=== PATIENT | male | born 1985 | race Caucasian/White ===

== ENCOUNTER 2023-01-10 15:44 | Emergency (ER) | payer SELFPAY ==
[~2023-01-10] VITALS: Ht 175.3 cm; Wt 87.4 kg
[2023-01-10 18:03] VITALS: BP 151/80
[2023-01-10] MEDS ORDERED: METH-1182 PO (18:25)
[2023-01-10] MEDS ORDERED: IBUP-1456 PO (18:25)
[2023-01-10] MEDS ORDERED: KETOROLAC TROMETH 60MG/2ML VIAL IM ONE (18:45)
== END 2023-01-10 19:01 | disposition home or self-care (01) ==
LOC: ER 15:44
DX: S29.011A Strain of muscle and tendon of front wall of thorax, initial encounter (principal); S39.011A Strain of muscle, fascia and tendon of abdomen, initial encounter; S30.1XXA Contusion of abdominal wall, initial encounter; W18.09XA Striking against other object with subsequent fall, initial encounter; Y93.89 Activity, other specified; Y92.89 Other specified places as the place of occurrence of the external cause; Y99.8 Other external cause status
CPT/HCPCS: 71250; 74176; 99284; J1885

== ENCOUNTER → 2024-10-13 | Outpatient (CLI) | payer BC ==
[~2024-10-13] MED LIST: IBUP-1456 PO; METH-1182 PO
[2024-10-13 07:05] LABS: Urine Bacteria None Seen /hpf (None Seen)
[2024-10-13 07:31] LABS: Urine Blood TRACE /uL (Negative); Urine Clarity Clear (Clear); Urine Color Yellow (Yellow); Urine Mucus FEW (None Seen); Urine Protein, UAD Negative (Negative); Urine Specific Gravity 1.026 (1.001-1.035); Urine Squamous Epithelial Cell FEW /hpf (<5); Urine Urobilinogen Normal (Negative); Urine WBC 1 /HPF (0-3); Urine pH 5.5 (5.0-9.0)
[2024-10-13 07:33] LABS: Basophils # (auto) 0 10 ^3/uL (0-0.2); Basophils % (auto) 0.7 % (0.0-2.0); Eosinophils # (auto) 0.2 10 ^3/uL (0-0.8); Eosinophils % (auto) 3.2 % (0.0-7.0); Hematocrit 47.6 % (41.0-53.0); Hemoglobin 16.8 g/dL (13.5-17.5); Lymphocytes # (auto) 2.9 10 ^3/uL (0.4-5.4); Mean Corpuscular Hemoglobin 30.4 pg (28.0-32.0); Mean Corpuscular Hgb Conc. 35.2 g/dL (32.0-36.0); Mean Corpuscular Volume 86.3 fL (80.0-100.0); Monocytes # (auto) 0.5 10 ^3/uL (0-1.3); Monocytes % (auto) 7.5 % (0.0-12.0); Neutrophils # (auto) 3.3 10 ^3/uL (1.6-8.6); Neutrophils % (auto) 47.6 % (37.0-80.0); Nucleated Red Blood Cells % 0.2 %; Platelet Count (auto) 222 10^3/uL (140-450); Red Blood Cells 5.52 10^6/uL (4.5-5.90); Red Cell Distribution Width 13.4 % (11.8-14.3)
[2024-10-13 08:14] LABS: Alkaline Phosphatase 58 U/L (46-116); Anion Gap 9 (5-15); BUN/Creatinine Ratio 12.8 (10.0-20.0); Blood Urea Nitrogen 12 mg/dL (9-23); Calcium 9.8 mg/dL (8.7-10.4); Carbon Dioxide 24 mmol/L (20-31); Chloride 107 mmol/L (98-107); Glucose 99 mg/dL (74-106); Sodium 140 mmol/L (136-145); Total Protein 7.2 g/dL (5.7-8.2); Triglycerides 118 mg/dL (< 150)
[2024-10-13 08:15] LABS: Aspartate Aminotransferase 22 U/L (13-40); Bilirubin, Total 0.8 mg/dL (0.2-1.0); HDL Cholesterol 47 mg/dL (40-59)
[2024-10-13 08:20] LABS: Alanine Aminotransferase 65 U/L (7-40); Albumin 4.9 g/dL (3.2-4.8); Cholesterol 210 mg/dL (< 200); LDL Cholesterol 147 mg/dL (< 100)
== END | disposition home or self-care (01) ==
LOC: LAB 06:38
PROVIDERS: ATTEND Internal Medicine
DX: Z00.00 Encounter for general adult medical examination without abnormal findings (principal)
CPT/HCPCS: 36415; 80053; 80061; 81001; 82043; 83036; 84443; 85025

== ENCOUNTER → 2025-02-04 | Day surgery (SDC) | payer BC ==
[2025-02-02 15:08] LABS: Hematocrit 47.7 % (41.0-53.0); Hemoglobin 16.5 g/dL (13.5-17.5); Mean Corpuscular Hemoglobin 30.1 pg (28.0-32.0); Mean Corpuscular Volume 87.4 fL (80.0-100.0); Nucleated Red Blood Cells % 0.2 %
[2025-02-02 15:12] LABS: Urine Protein, UAD Negative (Negative)
[2025-02-02 15:28] LABS: Alkaline Phosphatase 79 U/L (46-116); Anion Gap 9 (5-15); BUN/Creatinine Ratio 14.1 (10.0-20.0); Blood Urea Nitrogen 14 mg/dL (9-23); Calcium 9.7 mg/dL (8.7-10.4); Carbon Dioxide 28 mmol/L (20-31); Chloride 104 mmol/L (98-107); Glucose 84 mg/dL (74-106); Potassium 4.1 mmol/L (3.5-5.1); Sodium 141 mmol/L (136-145); Total Protein 7.1 g/dL (5.7-8.2)
[2025-02-02 15:29] LABS: Bilirubin, Total 0.4 mg/dL (0.2-1.0)
[2025-02-02 15:33] LABS: Alanine Aminotransferase 95 U/L (7-40); Albumin 4.9 g/dL (3.2-4.8); INR 1.01 (0.9-1.15); Partial Thromboplastin Time 26.8 SEC (24.5-34.5); Prothrombin Time 10.7 sec (9.3-11.8)
[~2025-02-04] VITALS: Ht 175.3 cm; Wt 93.0 kg
[~2025-02-04] MED LIST changes: -IBUP-1456 PO; +KETAMINE 50mg/ML 1ml syringe ONE; +LEVO500T91 PO; +LIDOCAINE 1% INJ PF 5ML AMP ONE; -METH-1182 PO; +MIDAZOLAM HCL 2MG/2ML 2ml VIAL (1mg/ml) ONE; +ONDANSETRON HCL 4 MG/2 ML VIAL ONE; +PROPOFOL 10 MG/ML 20 ML IV ONE; +SODIUM CHLORIDE LOCK 10 ML ONE; +fentaNYL CITRATE 100 MCG/2 ML VL ONE
--- NOTE | 2025-02-04 11:49 | DVHOP2 ---
Operative Report DATE OF OPERATION: 02/04/25 PROCEDURE: Colonoscopy with cold biopsy. PREOPERATIVE INDICATION: The patient is a 39 -year-old male undergoing colonoscopy for colon cancer screening with her family history of colon cancer POSTOPERATIVE DIAGNOSES: 1. There were 2-3 diminutive benign-appearing rectal excrescences that were seen and removed by cold biopsy forceps 2. Trace internal hemorrhoids otherwise completely normal colonoscopy examination up to the cecum and terminal ileum PROCEDURE PERFORMED BY: Corby Ken M.D. SCOPE: Olympus videocolonoscope. ASA CLASS: 2 PREOPERATIVE MEDICATIONS: Dr. Analy Hernandez PROCEDURE IN DETAIL: After obtaining an informed consent, the patient was placed on left lateral decubitus position. He was then sedated with the above medications. A rectal examination was performed that was normal. The colonoscope was then passed through the anus into the rectosigmoid and through the descending, transverse, and ascending colon up to the cecum with visualization of the appendiceal orifice, base of the cecum and the ileocecal valve. The colonoscope was then withdrawn. The distal 5 cm of the terminal ileum were normal No polyps or masses were seen. There was no colitis or clear-cut diverticular disease In the rectum there were two three diminutive benign-appearing hyperplastic excrescences that were removed by cold biopsy forceps On retroflexion and straight on view the patient had trace to 1+ internal hemorrhoids. The patient tolerated the procedure well without difficulty. WITHDRAWAL TIME: 9 minute QUALITY OF THE PREP: [place] Bowel Prep score: 9. COMPLICATIONS : None SPECIMENS: Rectal excrescence DISPOSITION: Stable D/C to home PLAN: 1. Repeat colonoscopy base on biopsy result likely in 5-7 years 2. Resume GI soft diet advance as tolerated 3. Outpatient follow up with me in 2-4 weeks to review results and discuss further management CORBY KEN MD Feb 04, 2025 11:49
[2025-02-04 12:26] VITALS: BP 130/90; PULSE 93; RESP 11; O2SAT 97
== END | disposition home or self-care (01) ==
LOC: GI 10:30
PROVIDERS: ATTEND Internal Medicine Gastroenterology
DX: Z12.11 Encounter for screening for malignant neoplasm of colon (principal); K62.1 Rectal polyp; Z80.0 Family history of malignant neoplasm of digestive organs; K64.0 First degree hemorrhoids
CPT/HCPCS: 36415; 45380; 80053; 81001; 85025; 85610; 85730; 88305; J2250; J2405; J2704; J3010; J7030

== ENCOUNTER 2025-02-12 09:39 | Emergency (ER) | payer BC ==
[~2025-02-12] VITALS: Ht 177.8 cm; Wt 94.3 kg
[2025-02-12] MEDS: PANTOPRAZOLE 40 MG/10 ML VIAL INJ IV ONE (10:18)
[2025-02-12] MEDS: ONDANSETRON HCL 4 MG/2 ML VIAL IV ONE (10:18)
[2025-02-12] MEDS: SODIUM CHLORIDE 0.9% 1,000 ML IV ONE (10:20)
[2025-02-12] MEDS: MORPHINE SULFATE 4 MG/ML SYR/VIAL IV ONE (10:20)
--- NOTE | 2025-02-12 10:26 | ED.PDOC ---
GI ASSESSMENT HPI Comments This is a 39 year-old male who presents to the ED with a chief complaint of abdominal pain with associated N/V and chills as of this morning. Patient states having a colonoscopy X1 week ago. Patient has no further complaints at this time and otherwise denies further associated symptoms of diarrhea, dysuria, hematuria, chest pain, or back pain. Chief Complaint: Nausea/Vomiting Time Seen by MD: 10:19 Primary Care Provider: "I DON'T KNOW THIER NAME" Allergies: Coded Allergies: NO KNOWN ALLERGIES (Unverified , 08/05/12) Home Meds Active Scripts Levofloxacin Hemihydrate (LEVOFLOXACIN) 500 Mg Tab, 1 TAB PO DAILY for 10 Days, #10 TAB Prov:RICK GODDARD MD 02/12/25 Information Source: Patient Mode of Arrival: Ambulatory Timing: Hours Duration: Since onset Prehospital treatment: None Quality: None Vomitus: None Severity: Moderate Recent: Other (recent colonoscopy ) Pain Location: Diffuse Associated sign and symptoms: Nausea, Vomiting, Abdominal Pain, Other (chills ) Past Medical History PAST MEDICAL HISTORY: Denies Surgical History: Denies all surgeries Family History Family History: Reviewed,noncontributory to illness Social History Smoker: Non-Smoker Alcohol: Denies ETOH Use Drugs: Denies Drug Use Lives In: Home Constitutional: reports: chills; denies: diaphoresis, fatigue, fever, malaise, sweats, weakness, others EENTM: denies: blurred vision, double vision, ear bleeding, ear discharge, ear drainage, ear pain, ear ringing, eye pain, eye redness, hearing loss, mouth pain, mouth swelling, nasal discharge, nose bleeding, nose congestion, nose pain, photophobia, tearing, throat pain, throat swelling, voice changes, others Respiratory: denies: cough, hemoptysis, orthopnea, SOB at rest, shortness of breath, SOB with excertion, stridor, wheezing, others Cardiovascular: denies: chest pain, dizzy spells, diaphoresis, Dyspnea on exertion, edema, irregular heart beat, left arm pain, lightheadedness, palpitations, PND, syncope, others Gastrointestinal: reports: abdominal pain, nausea, vomiting; denies: abdomen distended, blood streaked bowels, constipated, diarrhea, dysphagia, difficulty swallowing, hematemesis, melena, poor appetite, poor fluid intake, rectal bleeding, rectal pain, others Genitourinary: denies: burning, dysuria, flank pain, frequency, hematuria, incontinence, penile discharge, penile sore, pain, testicle pain, testicle swelling, urgency, others Neurological: denies: dizziness, fainting, headache, left sided numbness, left sided weakness, numbness, paresthesia, pre-existing deficit, right sided numbness, right sided weakness, seizure, speech problems, tingling, tremors, weakness, others Musculoskeletal: denies: back pain, gout, joint pain, joint swelling, muscle pain, muscle stiffness, neck pain, others Integumetry: denies: bruises, change in color, change in hair/nails, dryness, laceration, lesions, lumps, rash, wounds, others Allergic/Immunocompromised: denies: Difficulty Healing, Frequent Infections, Hives, Itching, others Hematologic/Lymphatic: denies: anemia, blood clots, easy bleeding, easy bruising, swollen glands, others Endocrine: denies: excessive hunger, excessive sweating, excessive thirst, excessive urination, flushing, intolerance to cold, intolerance to heat, unexplained weight gain, unexplained weight loss, others Psychiatric: denies: anxiety, bipolar disorder, depression, hopeless, panic d isorder, schizophrenia, sleepless, suicidal, others All Other Systems: Reviewed and Negative Physical Exam General Appearance: Moderate Distress HEENT: Normal ENT Inspection, Pharynx Normal, TMs Normal Neck: Full Range of Motion, Non-Tender, Normal, Normal Inspection Respiratory: Chest Non-Tender, Lungs Clear, No Accessory Muscle Use, No Respiratory Distress, Normal Breath Sounds Cardiovascular: No Edema, No JVD, No Murmur, No Gallop, Normal Peripheral Pulses, Regular Rate/Rhythm Breast Exam: Deferred Gastrointestinal: No Organomegaly, Non Tender, No Pulsatile Mass, Normal Bowel Sounds, Soft Genitalia: Deferred Pelvic: Deferred Rectal: Deferred Extremities: No calf tenderness, Normal capillary refill, Normal inspection, Normal range of motion, Non-tender, No pedal edema Musculoskeletal : Apperance: Normal Neurologic: Alert, 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 Was a procedure done?: No GI differential Dx Differential Diagnosis: Constipation, Diverticular disease, Esophagitis, Gastritis/PUD, Gastroenteritis, Inflammatory BD, Dehydration, Bacterial, Parasitic, Viral X-Ray, Labs, Meds, VS Vital Signs Date Time Temp Pulse Resp B/P (MAP) Pulse Ox O2 Delivery O2 Flow Rate FiO2 02/12/25 12:45 97.9 76 16 118/67 (84) 96 97.9 02/12/25 10:45 75 18 111/70 02/12/25 10:43 97.6 75 18 111/70 (84) 96 97.6 02/12/25 10:33 84 19 95 Room Air* 0 21 02/12/25 10:20 84 18 119/69 02/12/25 09:42 98.4 84 18 119/69 99 98.4 Lab Test 02/12/25 10:13 02/12/25 10:10 02/12/25 09:46 Range/Units Urine Color Yellow Yellow Urine Clarity Clear Clear Urine pH 7.0 5.0-9.0 Urine Specific [place] 1.028 1.001-1.035 Urine Protein Negative Negative Urine Ketones Negative Negative Urine Blood Negative Negative /uL Urine Nitrite Negative Negative Urine Bilirubin Negative Negative Urine Urobilinogen Normal Negative mg/dL Urine Leukocyte Esterase Negative Negative /uL Urine RBC 3 0 - 3 /hpf Urine Microscopic WBC 1 0-3 /HPF Urine Squamous Epithelial Cells None seen <5 /hpf Urine Bacteria None seen None Seen /hpf Urine Mucus Few None Seen Urine Glucose Normal Normal mg/dL White Blood Count 11.7 H 4.4-10.8 10^3/uL Red Blood Count 5.56 4.5-5.90 10^6/uL Hemoglobin 16.7 13.5-17.5 g/dL Hematocrit 48.2 41.0-53.0 % Mean Corpuscular Volume 86.7 80.0-100.0 fL Mean Corpuscular Hemoglobin 30.0 28.0-32.0 pg Mean Corpuscular Hemoglobin Concent 34.7 32.0-36.0 g/dL Red Cell Distribution Width 13.8 11.8-14.3 % Platelet Count 230 140-450 10^3/uL Mean Platelet Volume 8.7 6.9-10.8 fL Neutrophils (%) (Auto) 82.9 H 37.0-80.0 % Lymphocytes (%) (Auto) 12.4 10.0-50.0 % Monocytes (%) (Auto) 4.3 0.0-12.0 % Eosinophils (%) (Auto) 0.2 0.0-7.0 % Basophils (%) (Auto) 0.2 0.0-2.0 % Neutrophils # (Auto) 9.7 H 1.6-8.6 10 ^3/uL Lymphocytes # (Auto) 1.5 0.4-5.4 10 ^3/uL Monocytes # (Auto) 0.5 0-1.3 10 ^3/uL Eosinophils # (Auto) 0 0-0.8 10 ^3/uL Basophils # (Auto) 0 0-0.2 10 ^3/uL Nucleated Red Blood Cells 0.2 % Sodium Level 140 136-145 mmol/L Potassium Level 4.3 3.5-5.1 mmol/L Chloride Level 105 98-107 mmol/L Carbon Dioxide Level 26 20-31 mmol/L Anion Gap 9 5-15 Blood Urea Nitrogen 16 9-23 mg/dL Creatinine 1.00 0.700-1.30 mg/dL Glomerular Filtration Rate Calc 98 >90 mL/min BUN/Creatinine Ratio 16.0 10.0-20.0 Serum Glucose 130 H 74-106 mg/dL Calcium Level 9.9 8.7-10.4 mg/dL Total Bilirubin 0.7 0.2-1.0 mg/dL Aspartate Amino Transferase (AST) 49 H 13-40 U/L Alanine Aminotransferase (ALT) 126 H 7-40 U/L Alkaline Phosphatase 74 46-116 U/L Total Protein 7.5 5.7-8.2 g/dL Albumin 5.2 H 3.2-4.8 g/dL POC Glucose 135 H 70-106 mg/dl Current Medications Medications (Trade) Dose Ordered Sig/Marito Route Start Time Stop Time Status Last Admin Sodium Chloride 1,000 ml @ 1,000 mls/hr Q1H ONCE IV 02/12/25 10:15 02/12/25 11:14 DC 02/12/25 10:20 Morphine Sulfate 4 mg ONCE ONCE IV 02/12/25 10:15 02/12/25 10:16 DC 02/12/25 10:20 Ondansetron HCl (Zofran) 4 mg ONCE ONCE IV 02/12/25 10:15 02/12/25 10:16 DC 02/12/25 10:18 Pantoprazole Sodium (Protonix) 40 mg ONCE ONCE IV 02/12/25 10:15 02/12/25 10:16 DC 02/12/25 10:18 [place] [id number] Ph: [phone] DIAGNOSTIC IMAGING Diagnostic Imaging Report : [id number] Signed PATIENT: BRANDON MCKEON ACCT: [id number] UNIT: [id number] : 1985 LOC: ER ROOM / BED: / AGE / SEX: 39 / M ADM STATUS: REG ER SERVICE 1155 ORDERING PHYSICIAN: RICK GODDARD MD PROCEDURE(s): ABPL - CT AB PEL WO CON-NO ORAL OR IV REASON: r/o gallstones ORDER NUMBER(s): [id number], ACCESSION NUMBER(s): [id number] Exam: CT CT AB PEL WO CON-NO ORAL OR IV History: r/o gallstones Comparison Study: CT CHST AB PEL WO CON-NO IV/ORAL on DOS: 01/10/23 Technique: Multidetector spiral CT of the abdomen and pelvis was performed from lung bases to pubic symphysis. Imaging was performed without IV contrast. Axial, coronal and sagittal multiplanar reformats were obtained from the axial data set by the technologist. Radiation dose : Abdomen/Pelvis: CTDIvol 13.69 mGy, DLP 750.03 mGy*cm. Findings: Evaluation of solid organs is limited due to lack of intravenous contrast use. Lung Bases: Patchy ground-glass opacities in the lung bases. Liver: The liver is normal in size. No focal lesions. Gallbladder and biliary Tree: Unremarkable Spleen: Unremarkable Pancreas: The pancreas is grossly normal in appearance. Adrenal Glands: Unremarkable Kidneys: Subcentimeter high density left renal cysts. No hydronephrosis or nephrolithiasis. Bladder: Grossly unremarkable for degree of distention. Bowel: The stomach is grossly normal in appearance. Small bowel and colon are normal in caliber and distribution. Normal appendix is visualized in the right lower quadrant without findings of appendicitis. Ascites: Absent Lymphadenopathy: No mesenteric, retroperitoneal or periportal lymphadenopathy. Abdominal wall and Mesentery: Small fat containing umbilical hernia. Vasculature: The visualized abdominal aorta is normal in size and caliber. Evaluation of abdominal and pelvic vessels is limited due to lack of intravenous contrast. Pelvic Organs: Unremarkable Musculoskeletal: No aggressive focal bony lesions, acute fractures or dislocation. IMPRESSION: 1. No acute abdominal or pelvic findings. No radiopaque gallstones. Consider further evaluation with right upper quadrant ultrasound. Subcentimeter high density left renal cyst. Small fat containing umbilical hernia. Mild patchy ground-glass opacities in the lung bases. Clinical correlation and continued follow-up is recommended. Radiation optimization: All CT scans at this facility use at least one of these dose optimization techniques: Automated exposure control mA and/or kV adjustment per patient size (includes targeted exams where dose is matched to clinical indication) or iterative reconstruction. HS:Y Patient alert. Complaining of abdominal pain. Vitals stable. Answering questions. Liver enzymes slightly elevated. Blood sugar slightly elevated. Establish intravenous access. Was given fluids pain Was given pain medication. Was given Zofran. Was given Protonix. WBC elevated. Possible dehydration. CT scan of the abdomen reviewed does show pneumonia. No abdominal pathology. Was given prescription of Levaquin antibiotic. Patient states that he is feeling much better. Explained to the patient. Was told to follow up with his primary care physician. Was told to come back if there is any problem. Time of 1ST Reevaluation: 11:00 Reevaluation 1ST: Unchanged Time of 2ND Reevaluation: 12:51 Reevaluation 2ND: Improved Patient Education/Counseling: Diagnosis, Treatment Family Education/Counseling: No Family Present SEPSIS Sepsis Screen Date sepsis recognized/suspect: Feb 12, 2025 Time Sepsis recognized/suspect: 943 Recent Procedure: Yes (COLONOSCOPY FRIDAY) On Antibiotic Therapy: No Respiratory Rate >20: No Heart Rate >90: No Temp<36 C (96.8 F) or >38.3 C: No SBP <90 or MAP <65 mmHG: No New Acute Mental Status Change: No Is the patient on CPAP, BIPAP,: No Physician Orders Ct Ab Pel Wo Con-No Oral Or Iv (02/12/25 11:55) Vital Signs Date Time Temp Pulse Resp B/P (MAP) Pulse Ox O2 Delivery O2 Flow Rate FiO2 02/12/25 12:45 97.9 76 16 118/67 (84) 96 97.9 02/12/25 10:45 75 18 111/70 02/12/25 10:43 97.6 75 18 111/70 (84) 96 97.6 02/12/25 10:33 84 19 95 Room Air* 0 21 02/12/25 10:20 84 18 119/69 02/12/25 09:42 98.4 84 18 119/69 99 98.4 Laboratory Tests Test 02/12/25 10:10 White Blood Count 11.7 10^3/uL (4.4-10.8) H Medications Medications Dose Ordered Sig/Marito Route Start Time Stop Time Status Last Admin Dose Admin Morphine Sulfate 4 mg ONCE ONCE IV 02/12/25 10:15 02/12/25 10:16 DC 02/12/25 10:20 Ondansetron HCl 4 mg ONCE ONCE IV 02/12/25 10:15 02/12/25 10:16 DC 02/12/25 10:18 Pantoprazole Sodium 40 mg ONCE ONCE IV 02/12/25 10:15 02/12/25 10:16 DC 02/12/25 10:18 Sodium Chloride 1,000 ml @ 1,000 mls/hr Q1H ONCE IV 02/12/25 10:15 02/12/25 11:14 DC 02/12/25 10:20 Departure 1 Departure Time of Disposition: 12:04 Impression: Primary Impression: Acute abdominal pain Additional Impressions: Elevated liver enzymes Pneumonia Qualified Codes: J18.9 - Pneumonia, unspecified organism Disposition: 01 HOME / SELF CARE / HOMELESS Condition: Good e-Prescriptions Levofloxacin Hemihydrate (LEVOFLOXACIN) 500 Mg Tab 1 TAB PO DAILY for 10 Days, #10 TAB Prov: RICK GODDARD MD 02/12/25 Discharged With: Self Critical Care Note Critical Care Time?: No Stability Stability form required: No Heart Score Heart Score: Heart Score Response (Comments) Value History N/A 0 EKG N/A 0 Age N/A 0 Risk Factors N/A 0 Troponin N/A 0 Total 0 I personally scribed for RICK GODDARD MD ([email or web address]) on 02/12/25 at 10:25. Electronically submitted by Emma Wilson ([email or web address]). I personally scribed for RICK GODDARD MD ([email or web address]) on 02/12/25 at 12:49. Electronically submitted by Emma Wilson ([email or web address]). RICK GODDARD MD Feb 12, 2025 10:25
[2025-02-12 10:33] VITALS: PULSE 84; RESP 19; O2SAT 95
[2025-02-12 10:42] LABS: Hematocrit 48.2 % (41.0-53.0); Hemoglobin 16.7 g/dL (13.5-17.5); Mean Corpuscular Hemoglobin 30.0 pg (28.0-32.0); Mean Corpuscular Volume 86.7 fL (80.0-100.0); Nucleated Red Blood Cells % 0.2 %
[2025-02-12 10:54] LABS: Alkaline Phosphatase 74 U/L (46-116); Anion Gap 9 (5-15); BUN/Creatinine Ratio 16.0 (10.0-20.0); Blood Urea Nitrogen 16 mg/dL (9-23); Calcium 9.9 mg/dL (8.7-10.4); Carbon Dioxide 26 mmol/L (20-31); Chloride 105 mmol/L (98-107); Potassium 4.3 mmol/L (3.5-5.1); Sodium 140 mmol/L (136-145); Total Protein 7.5 g/dL (5.7-8.2)
[2025-02-12 10:55] LABS: Bilirubin, Total 0.7 mg/dL (0.2-1.0)
[2025-02-12 10:58] LABS: Alanine Aminotransferase 126 U/L (7-40); Albumin 5.2 g/dL (3.2-4.8); Glucose 130 mg/dL (74-106)
[2025-02-12 11:40] LABS: Urine Protein, UAD Negative (Negative)
--- NOTE | 2025-02-12 12:40 | DVH ---
Exam: CT CT AB PEL WO CON-NO ORAL OR IV History: r/o gallstones Comparison Study: CT CHST AB PEL WO CON-NO IV/ORAL on DOS: 01/10/23 Technique: Multidetector spiral CT of the abdomen and pelvis was performed from lung bases to pubic symphysis. Imaging was performed without IV contrast. Axial, coronal and sagittal multiplanar reform ats were obtained from the axial data set by the technologist. Radiation dose : Abdomen/Pelvis: CTDIvol 13.69 mGy, DLP 750.03 mGy*cm. Findings: Evaluation of solid organs is limited due to lack of intravenous contrast use. Lung Bases: Patchy ground-glass opacities in the lung bases. Liver: The liver is normal in size. No focal lesions. Gallbladder and biliary Tree: Unremarkable Spleen: Unremarkable Pancreas: The pancreas is grossly normal in appearance. Adrenal Glands: Unremarkable Kidneys: Subcentimeter high density left renal cysts. No hydronephrosis or nephrolithiasis. Bladder: Grossly unremarkable for degree of distention. Bowel: The stomach is grossly normal in appearance. Small bowel and colon are normal in caliber and d istribution. Normal appendix is visualized in the right lower quadrant without findings of appendicit is. Ascites: Absent Lymphadenopathy: No mesenteric, retroperitoneal or periportal lymphadenopathy. Abdominal wall and Mesentery: Small fat containing umbilical hernia. Vasculature: The visualized abdominal aorta is normal in size and caliber. Evaluation of abdominal a nd pelvic vessels is limited due to lack of intravenous contrast. Pelvic Organs: Unremarkable Musculoskeletal: No aggressive focal bony lesions, acute fractures or dislocation. IMPRESSION: 1. No acute abdominal or pelvic findings. No radiopaque gallstones. Consider further evaluation with right upper quadrant ultrasound. Subcentimeter high density left renal cyst. Small fat containing umb ilical hernia. Mild patchy ground-glass opacities in the lung bases. Clinical correlation and continu ed follow-up is recommended. Radiation optimization: All CT scans at this facility use at least one of these dose optimization rambo hniques: Automated exposure control mA and/or kV adjustment per patient size (includes targeted exams where dose is matched to clinical indication) or iterative reconstruction. HS:Y
[2025-02-12] MEDS ORDERED: LEVO500T91 PO (12:50)
[2025-02-12 13:47] VITALS: BP 132/68; PULSE 84; RESP 20; TEMP 98.6; O2SAT 98
== END 2025-02-12 13:52 | disposition home or self-care (01) ==
LOC: ER 09:39
DX: J18.9 Pneumonia, unspecified organism (principal); R10.9 Unspecified abdominal pain; R74.01 Elevation of levels of liver transaminase levels; Z79.899 Other long term (current) drug therapy
CPT/HCPCS: 36415; 74176; 80053; 81001; 82947; 85025; 96374; 96375; 99285; J2270; J2405; J2470; 82962